=== PATIENT | female | born 1950 | race Caucasian/White ===

== ENCOUNTER 2018-02-01 09:38 | Day surgery (SDC) | payer MEDICARE ==
[2018-01-30 16:09] VITALS: BMI 33.3
[~2018-02-01 09:38] MED LIST: LACTATED RINGERS 1,000 ML IV SCH; LIDOCAINE 1% 20 ML VIAL (10MG/ML) FOR IV START INTRADERMA PRN
[2018-02-01 10:25] VITALS: TEMP 98
[2018-02-01] MEDS ORDERED: PROPOFOL 10 MG/ML 20 ML VIAL IV ONE (10:59)
--- NOTE | 2018-02-01 11:20 | P.PCN ---
Date of Procedure: 02/01/18 Procedure(s) Performed: BRIEF HISTORY: Patient is a 67-year-old pleasant female, scheduled for an elective colonoscopy as a part of evaluation of prior history of colon polyps. PROCEDURE PERFORMED: Colonoscopy with snare polypectomy. PREOPERATIVE DIAGNOSIS: History Of colon polyps. IV sedation per Anesthesia. PROCEDURE: After informed consent was obtained, the patient, was brought into the endoscopy unit. IV sedation was administered by Anesthesia under continuous monitoring. Digital rectal examination was normal. Initially the Olympus CF- 160 flexible video colonoscope was then inserted in the rectum, gradually advanced into the cecum without any difficulty. Careful examination was performed as the scope was gradually being withdrawn. Ileocecal valve and the appendiceal orifice were visualized and appeared normal. Prep was excellent. Mucosa of the cecum, ascending colon, appeared normal. In the transverse colon there was a 5 mm and 1 cm sessile polyp removed by snare polypectomy. In the sigmoid colon there was another 3 mm polyp that was removed by snare polypectomy. Rest of the transverse colon, descending colon, sigmoid colon, and rectum appeared normal. Retroflexion was performed in the rectum and no lesions were seen. The patient tolerated the procedure well. IMPRESSION: 1 cm and 5 mm sessile transverse colon polyp status post polypectomy 3 mm sessile sigmoid colon polyp status post snare polypectomy Scattered sigmoid diverticulosis RECOMMENDATIONS: Findings of this examination were discussed with the patient is a family. She was advised to have a repeat surveillance colonoscopy in 3-5 years from now based on the biopsy results.
[2018-02-01 11:41] VITALS: BP 143/80; PULSE 63; RESP 18
== END 2018-02-01 12:09 | disposition home or self-care (01) ==
LOC: ORWHC2ENDO 09:38
PROVIDERS: ATTEND Internal Medicine Gastroenterology
DX: Z12.11 Encounter for screening for malignant neoplasm of colon (principal); D12.4 Benign neoplasm of descending colon; D12.5 Benign neoplasm of sigmoid colon; K57.30 Diverticulosis of large intestine without perforation or abscess without bleeding; Z86.010 Personal history of colon polyps; E78.5 Hyperlipidemia, unspecified; K21.9 Gastro-esophageal reflux disease without esophagitis; Z79.899 Other long term (current) drug therapy; Z88.8 Allergy status to other drugs, medicaments and biological substances; Z87.891 Personal history of nicotine dependence
CPT/HCPCS: 88305; 45385; J2704

== ENCOUNTER 2022-03-02 07:42 | Day surgery (SDC) | payer MEDICARE ==
[2022-03-01 12:41] VITALS: BMI 34.3
[~2022-03-02 07:42] MED LIST changes: -LIDOCAINE 1% 20 ML VIAL (10MG/ML) FOR IV START INTRADERMA PRN
[2022-03-02 08:31] VITALS: RESP 16; TEMP 97.3
[2022-03-02] MEDS ORDERED: LIDOCAINE 1% (10MG/ML) FOR IV START INTRADERMA ONE (08:35)
[2022-03-02] MEDS ORDERED: LIDOCAINE 2% INJ 20 MG/ML (2 ML VIAL) ONE (08:57)
[2022-03-02] MEDS ORDERED: PROPOFOL 10 MG/ML 20 ML VIAL IV ONE (08:57)
--- NOTE | 2022-03-02 09:14 | P.PCN ---
Date of Procedure: 03/02/22 Procedure(s) Performed: BRIEF HISTORY: Patient is a 71-year-old pleasant female scheduled for an elective colonoscopy as a part of evaluation of prior history of colon polyps. Last coloscopy was 4 years ago. PREOPERATIVE DIAGNOSIS: History of colon polyps. IV sedation per Anesthesia. PROCEDURE: After informed consent was obtained, the patient, was brought into the endoscopy unit. IV sedation was administered by Anesthesia under continuous monitoring. Digital rectal examination was normal. Initially the Olympus CF-160 flexible video colonoscope was then inserted in the rectum, gradually advanced into the cecum without any difficulty. Careful examination was performed as the scope was gradually being withdrawn. Ileocecal valve and the appendiceal orifice were visualized and appeared normal. Prep was excellent. Mucosa of the cecum, ascending colon, transverse colon, descending colon, sigmoid colon, and rectum appeared normal. Retroflexion was performed in the rectum anmonitoringere seen. The patient tolerated the procedure well. IMPRESSION: Normal-appearing colon from rectum to cecum with no evidence of colorectal neoplasia . Small internal hemorrhoids. RECOMMENDATIONS: Findings of this examination were discussed with the patient as well as a family. She was advised to have a repeat colonoscopy at age 78
[2022-03-02 09:34] VITALS: BP 142/74; PULSE 74
== END 2022-03-02 09:55 | disposition home or self-care (01) ==
LOC: ORWHC2ENDO 07:42
PROVIDERS: ATTEND Internal Medicine Gastroenterology
DX: Z12.11 Encounter for screening for malignant neoplasm of colon (principal); K64.8 Other hemorrhoids; E78.5 Hyperlipidemia, unspecified; F17.200 Nicotine dependence, unspecified, uncomplicated; M19.90 Unspecified osteoarthritis, unspecified site; K21.9 Gastro-esophageal reflux disease without esophagitis; Z79.899 Other long term (current) drug therapy; Z88.8 Allergy status to other drugs, medicaments and biological substances; Z86.010 Personal history of colon polyps
CPT/HCPCS: G0105; J2704; J2001; 45378

== ENCOUNTER → 2024-08-21 | Outpatient (CLI) | payer MEDICARE ==
--- NOTE | 2024-08-21 15:32 | BD ---
EXAMINATION TYPE: Axial Bone Density DATE OF EXAM: 08/21/2024 CLINICAL HISTORY: 74 years old Female. ICD-10 CODE: M81.8 OSTEOPOROSIS , Additional History: Height: 63 Weight: 200 FRAX RISK QUESTIONS: Family History (Parent hip fracture): no History of Fracture in Adulthood: no Secondary Osteoporosis: no RISK FACTORS HISTORY OF: Surgery to Spine/Hip(right/left)/Wrist (right/left): no MEDICATIONS: Thyroid Medications: no Osteoporosis Medications: no EXAM MEASUREMENTS: Bone mineral densitometry was performed using the [employer] System. Bone mineral density as measured about the Lumbar spine is: ----- L1-L4(G/cm2): 1.174 T Score Values are as follows: ----- L1: 0.0 ----- L2: 0.0 ----- L3: -0.3 ----- L4: 0.0 ----- L1-L4: 0.0 Z Score Values are as follows: ----- L1: 0.9 ----- L2: 0.9 ----- L3: 0.6 ----- L4: 0.9 ----- L1-L4: 0.9 Bone mineral density baseline Bone mineral density about the R hip (g/cm2): 1.036 Bone mineral density about the L hip (g/cm2): 1.051 T Score values are as follows: -----R Neck: -1.1 -----L Neck: -1.5 -----R Total: 0.2 -----L Total: 0.3 Z Score values are as follows: -----R Neck: 0.3 -----L Neck: -0.1 -----R Total: 1.4 -----L Total: 1.5 Bone mineral density baseline FRAX%s: The graph provided illustrates a 10.9% chance for a major osteoporotic fx and a 2.2% chance f or the hips probability for fx in 10 years time. IMPRESSION: Osteopenia (T Score between -2.5 and -1). There is slightly increased risk of fracture and the patient may be considered for treatment. Re-Screen 2-5 years. NOTE: T-SCORE=SD OF THE YOUNG ADULT MEAN. [facility], , 08/21/2024 3:30 PM
--- NOTE | 2024-08-21 15:50 | MM ---
Reason for Exam: Screening (asymptomatic). Last mammogram was performed 2 year(s) and 3 month(s) ago. Patient History: Menarche at age 13. First Full-Term at age 19. Postmenopausal. Patient has history of breast feeding. Other cancer. Patient used Hormonal Contraceptives for 2 years. Maternal aunt had breast cancer. Risk Values: Dari 5 year model risk: 1.4%. NCI Lifetime model risk: 2.9%. Prior Study Comparison: 04/09/2015 Bilateral MG screening mammo w CAD - 2, [facility] . 10/23/2015 Bilateral MG screening mammo w CAD - 2, [facility] . 07/24/2018 Bilateral MG screening mammo w CAD - 2, [facility] . 06/04/2020 Bilateral MG screening mammo w CAD - 2, [facility] . 06/07/2022 Bilateral MG screening mammo w [facility] - 2, [facility] . Tissue Density: The breasts are heterogeneously dense, which may obscure small masses. Findings: Analyzed By CAD. Asymmetric density central left MLO view middle to posterior depth appears more defined and incompletely disperses on 3-D images. This may represent superimposition shadow but further evaluation is recommended. Otherwise, no significant change. Overall Assessment: Incomplete: need additional imaging evaluation, BI-RAD 0 Management: Special View Mammogram of the left breast. [facility] will attempt to contact patient to return for supplemental views and ultrasound if indicated. [facility], , 08/21/2024 3:47 PM. Electronically signed and approved by: Justo Brumfield M.D. Radiologist
== END | disposition home or self-care (01) ==
LOC: RADMAMWWP 13:54
PROVIDERS: ATTEND Family Medicine
DX: Z12.31 Encounter for screening mammogram for malignant neoplasm of breast (principal); R92.333 Mammographic heterogeneous density, bilateral breasts; M81.8 Other osteoporosis without current pathological fracture; M85.89 Other specified disorders of bone density and structure, multiple sites; Z78.0 Asymptomatic menopausal state; Z80.3 Family history of malignant neoplasm of breast; Z92.0 Personal history of contraception
CPT/HCPCS: 77063; 77067; 77080

== ENCOUNTER → 2024-08-23 | Outpatient (CLI) | payer MEDICARE ==
--- NOTE | 2024-08-23 13:07 | MM ---
Reason for Exam: Additional evaluation requested from abnormal screening. Last screening mammogram was performed less than 1 month ago. Patient History: Menarche at age 13. First Full-Term at age 19. Postmenopausal. Patient has history of breast feeding. Other cancer. Patient used Hormonal Contraceptives for 2 years. Maternal aunt had breast cancer. Risk Values: Dari 5 year model risk: 1.4%. NCI Lifetime model risk: 2.9%. Prior Study Comparison: 06/04/2020 Bilateral MG screening mammo w CAD - 2, [facility] . 06/07/2022 Bilateral MG screening mammo w CAD - 2, [facility] . 08/21/2024 Bilateral MG 3D screening mammo w/cad, [facility]. Tissue Density: Left: The breasts are heterogeneously dense, which may obscure small masses. Findings: Analyzed By CAD. Centrally located asymmetric density on the left MLO view disperses on additional views compatible with benign superimposition shadow. Overall Assessment: Benign, BI-RAD 2 Management: Screening Mammogram of both breasts in 1 year. Results were given to the patient verbally at the time of exam. Patient should continue monthly self-breast exams. A clinical breast exam by your physician is recommended on an annual basis. This exam should not preclude additional follow-up of suspicious palpable abnormalities. Note on Dari scores and lifetime risk: 1. A Dari score greater than 3% is considered moderate risk. If this is the case, consider specialist referral to assess eligibility for a risk reducing agent. 2. If overall lifetime risk for the development of breast cancer is 20% or higher, the patient may qualify for future screening with alternating mammogram and breast MRI. [facility], , 08/23/2024 1:04 PM. Electronically signed and approved by: Justo Brumfield M.D. Radiologist
== END | disposition home or self-care (01) ==
LOC: RADMAMWWP 12:29
PROVIDERS: ATTEND Family Medicine
DX: R92.8 Other abnormal and inconclusive findings on diagnostic imaging of breast (principal); R92.322 Mammographic fibroglandular density, left breast; Z78.0 Asymptomatic menopausal state; Z92.0 Personal history of contraception; Z80.3 Family history of malignant neoplasm of breast
CPT/HCPCS: 77061; 77065